=== PATIENT | female | born 1960 | race Caucasian/White ===

== ENCOUNTER 2017-01-30 07:25 | Emergency (ER) | payer BC ==
[2017-01-30 07:37] VITALS: BP 114/65
--- NOTE | 2017-01-30 07:54 | EDM.PDOC ---
ED HPI GENERAL MEDICAL PROBLEM - General Chief Complaint: Lower Extremity Injury/Pain Stated Complaint: LT KNEE PAIN Time Seen by Provider: 01/30/17 07:42 Source of Information: Reports: Patient History Limitations: Reports: No Limitations - History of Present Illness INITIAL COMMENTS - FREE TEXT/NARRATIVE: The patient presents with left knee pain. About 2 weeks ago she began having pain in her left lateral knee. She does not recall any injury. She saw her provider Christianne Jean and she did an x-ray and put her on some meloxicam. Today she was in her yard and felt a pop with severe pain. She cannot put weight on her knee without it hurting. She said before this it would click at times and catch but it did not feel unstable. Onset: Today, Sudden Duration: Minutes: Location: Reports: Lower Extremity, Left (Knee) Quality: Reports: Sharp Severity: Moderate Improves with: Reports: None Worsens with: Reports: Movement Context: Reports: Activity (Walking in her yard) Associated Symptoms: Reports: No Other Symptoms Left Knee Pain Score (Numeric/FACES): 10 - Related Data Allergies Allergy/AdvReac Type Severity Reaction Status Date / Time No Known Allergies Allergy Verified 01/30/17 07:33 Home Meds: Home Meds Hydrocodone/Acetaminophen [Hydrocodon-Acetaminophen 5-325] 1 - 2 each PO Q6HR PRN #20 tablet 01/30/17 [Rx] Meloxicam. 01/30/17 [History] Past Medical History - Past Health History Medical/Surgical History: Denies Medical/Surgical History Social & Family History - Tobacco Use Smoking Status *Q: Never Smoker Second Hand Smoke Exposure: No Review of Systems - Review of Systems Review Of Systems: See Below Constitutional: Reports: No Symptoms Eyes: Reports: No Symptoms Ears: Reports: No Symptoms Nose: Reports: No Symptoms Mouth/Throat: Reports: No Symptoms Respiratory: Reports: No Symptoms Cardiovascular: Reports: No Symptoms GI/Abdominal: Reports: No Symptoms Genitourinary: Reports: No Symptoms Musculoskeletal: Reports: Other (Left knee pain) ED EXAM, GENERAL - Physical Exam Exam: See Below Exam Limited By: No Limitations General Appearance: Alert, No Apparent Distress Ears: Normal External Exam Nose: Normal Inspection Head: Atraumatic, Normocephalic Neck: Normal Inspection Respiratory/Chest: No Respiratory Distress Extremities: Other (No pain upon palpation to the left knee. She does have pain when stressing her lateral colateral ligament but it feels stable. Good sensation and pulses distally.) Course - Vital Signs Last Recorded V/S: Last Vital Signs Temp 99.0 F 01/30/17 07:34 Pulse 96 01/30/17 07:34 Resp BP 114/65 01/30/17 07:34 Pulse Ox 97 01/30/17 07:34 - Re-Assessments/Exams Free Text/Narrative Re-Assessment/Exam: 01/30/17 07:59 I have scheduled an MRI for 11am on Thursday. I will give her a knee immobilizer and crutches. I will try to get her in to see Dr Vasques after. Departure - Departure Time of Disposition: 08:10 Disposition: Home, Self-Care 01 Condition: Good Clinical Impression: Left knee pain Qualifiers: Chronicity: acute Qualified Code(s): M25.562 - Pain in left knee Left knee sprain Qualifiers: Encounter type: initial encounter Involved ligament of knee: unspecified ligament Qualified Code(s): S83.92XA - Sprain of unspecified site of left knee, initial encounter - Discharge Information Prescriptions: Hydrocodone/Acetaminophen [Hydrocodon-Acetaminophen 5-325] 1 - 2 each PO Q6HR PRN #20 tablet PRN Reason: Pain Referrals: Juan Vasques MD [Physician] - Forms: ED Department Discharge Additional Instructions: Ice your knee for 15 minutes every other hour while awake for 2 days. Elevate your knee as much as you can for 2 days. Wear the knee immobilizer and use the crutches as needed for pain. I have scheduled an MRI of you knee for Thursday at 11am. They would like you here early 1/[address] Vasques 's office will call you today to schedule an appointment for next week. Please return if you get worse.
== END 2017-01-30 08:30 | disposition home or self-care (01) ==
LOC: JD.ED 07:25
DX: S83.92XA Sprain of unspecified site of left knee, initial encounter (principal); X58.XXXA Exposure to other specified factors, initial encounter; Y92.096 Garden or yard of other non-institutional residence as the place of occurrence of the external cause
CPT/HCPCS: 99283